=== PATIENT | male | born 1980 | race Caucasian/White ===

== ENCOUNTER 2017-04-16 14:50 | Emergency (ER) | payer OTHER ==
[~2017-04-16] VITALS: Ht 185.4 cm; Wt 65.8 kg
[2017-04-16 15:00] VITALS: BP 113/72
[2017-04-16] MEDS ORDERED: LIDOCAINE 2% 20 ML MDV TP ONE (15:30)
== END 2017-04-16 16:20 | disposition home or self-care (01) ==
LOC: ER 14:55
DX: L03.011 Cellulitis of right finger (principal)
CPT/HCPCS: A4606; J3490; Z7610